=== PATIENT | female | born 1975 | race Caucasian/White ===

== ENCOUNTER 2017-03-08 08:51 | Emergency (ER) | payer MEDICAID ==
[~2017-03-08] VITALS: Ht 142.2 cm; Wt 97.5 kg
[2017-03-08 08:55] VITALS: Ht 142.2 cm; Wt 97.5 kg
[2017-03-08] MEDS ORDERED: morphine 4 MG/ML VIAL IV STA (09:32)
[2017-03-08] MEDS ORDERED: ONDANSETRON 4 MG INJ IV STA (09:32)
[2017-03-08 10:19] LABS: ADD SCAN DIFF NO
--- NOTE | 2017-03-08 10:22 | RADRPT ---
PROCEDURE: US Abdomen (right upper quadrant). CLINICAL INDICATION: Abdominal pain TECHNIQUE: Multiple real-time longitudinal and transverse images of the right upper quadrant of th e abdomen were acquired utilizing a curved array transducer. Images were reviewed on a high-resoluti on PACS workstation. COMPARISON: None FINDINGS: The visualized portions of the pancreas are unremarkable. The pancreatic tail and distal body are n ot visualized. The inferior vena cava is visualized in the hepatic portion and is grossly unremarkable. The visualized aorta is unremarkable, with measurements within normal limits. The right lobe of the liver measures 16.5 cm. The liver echogenicity and contour are within normal l imits. No definite liver masses are visualized. The main portal vein is patent and in the appropri ate direction. There are several small visualized within the gallbladder demonstrate posterior shadowing. The gall bladder is slightly contracted. The gallbladder wall thickness is about 3.7 mm, mildly prominent alt zaynab the gallbladder is slightly contracted. There is no pericholecystic fluid. The common bile duct measures 6.7 mm in diameter, at the upper limit of normal. There is no discre te gallstone visualized within the common bile duct. There is no intrahepatic biliary ductal dilata tion. The right kidney measures 11.2 cm in length. The parenchymal echogenicity and thickness appear withi n normal range. No focal lesions are visualized. There is no hydronephrosis. There is no ascites visualized in the right abdomen. RPTAT: EE IMPRESSION: 1. Cholelithiasis. 2. Borderline prominent common bile duct measuring about 6.7 mm. .Eden Burden MD, Date Time Electronically viewed and signed by .Eden Burden MD, MD on 03/08/2017 10:27 .T/
[2017-03-08 10:28] LABS: BASOPHILS % 0.2 % (0.0-2.0); EOSINOPHILS % 0.2 % (0.0-7.0); HEMATOCRIT 38.1 % (37.0-47.0); HEMOGLOBIN 12.8 g/dl (12.0-16.0); LYMPHOCYTES # 1.6 10^3/ul (0.8-2.9); LYMPHOCYTES % 12.8 % (15.0-51.0); MEAN CORPUSCULAR HEMOGLOBIN 29.1 pg (29.0-33.0); MEAN CORPUSCULAR HGB CONC 33.6 g/dl (32.0-37.0); MEAN CORPUSCULAR VOLUME 86.6 fl (82.0-101.0); MEAN PLATELET VOLUME 11.7 fl (7.4-10.4); MONOCYTE # 0.7 10^3/ul (0.3-0.9); MONOCYTES % 5.7 % (0.0-11.0); NEUTROPHILS % 80.8 % (39.0-77.0); PLATELET COUNT 239 10^3/UL (140-415); RED CELL DISTRIBUTION WIDTH 12.9 % (11.5-14.5); WHITE BLOOD COUNT 12.4 10^3/ul (4.8-10.8)
[2017-03-08 10:41] LABS: ALBUMIN/GLOBULIN RATIO 1.56; BILIRUBIN,INDIRECT 0.5 mg/dl (0-1.1); BILIRUBIN,TOTAL 0.5 mg/dl (0.2-1.3); CALCIUM 9.4 mg/dl (8.4-10.2); CREATININE 0.64 mg/dl (0.44-1.00); TOTAL PROTEIN 8.2 g/dl (6.1-8.1)
[2017-03-08] MEDS ORDERED: HYDROmorphONE 1 MG/ML SYG IV STA (11:01)
[2017-03-08] MEDS ORDERED: KETOROLAC 30 MG INJ IV STA (11:01)
[2017-03-08 11:35] LABS: ADD UMIC YES; UR ASCORBIC ACID NEGATIVE (NEGATIVE); UR BILIRUBIN (Dip) NEGATIVE (NEGATIVE); UR BLOOD (Dip) 3+ mg/dL (NEGATIVE); UR CLARITY CLOUDY (CLEAR); UR COLOR AMBER (YELLOW); UR GLUCOSE (Dip) 1+ mg/dL (NEGATIVE); UR KETONES (Dip) TRACE mg/dL (NEGATIVE); UR LEUKOCYTE ESTERASE (Dip) NEGATIVE Leu/ul (NEGATIVE); UR MUCUS FEW /HPF (NONE SEEN); UR NITRITE (Dip) NEGATIVE (NEGATIVE); UR RBC > 182 /HPF (0-5); UR SPECIFIC GRAVITY (Dip) 1.029 (1.003-1.030); UR SQUAMOUS EPITHELIAL CELL MODERATE /HPF (FEW); UR TOTAL PROTEIN (Dip) 2+ mg/dl (NEGATIVE); UR UROBILINOGEN (Dip) NEGATIVE (NEGATIVE)
[2017-03-08] MEDS ORDERED: CEFTRIAXONE 1 GM/50 ML (PMX) 50 ML IVPB ONE (12:00)
[2017-03-08] MEDS ORDERED: CIPR500T4 PO (12:32)
[2017-03-08] MEDS ORDERED: HYDR-906 PO (12:32)
[2017-03-08] MEDS ORDERED: ONDA8TAB14 PO (12:32)
--- NOTE | 2017-03-08 12:39 | ERD ---
ER Documentation Chief Complaint Date/Time DATE: 03/08/17 TIME: 12:36 Chief Complaint ABDOMINAL AND BACK PAIN HPI This 41-year-old female complains of upper abdominal pain for the last 2 days. She has nausea but no vomiting. She denies fevers, urinary complaints. She has a history of gallstones and has a history of ERCP with stone removal. She does not recall being advised to see a general surgeon for definitive treatment of gallstones. ROS All systems reviewed and are negative except as per history of present illness. Medications Home Meds Active Scripts Ciprofloxacin Hcl* (Ciprofloxacin Hcl*) 500 Mg Tablet, 500 MG PO BID for 5 Days , TAB Prov:KATIE DUPREE MD 03/08/17 Ondansetron (Ondansetron Odt) 8 Mg Tab.rapdis, 8 MG PO Q6H Y for NAUSEA AND/OR VOMITING, #10 TAB Prov:KATIE DUPREE MD 03/08/17 Hydrocodone/Acetaminophen ([place] 5-325 Tablet) 1 Each Tablet, 1 TAB PO Q6H Y for PAIN, #15 TAB Prov:KATIE DUPREE MD 03/08/17 Allergies Allergies: Coded Allergies: No Known Allergies (Verified Allergy, 05/05/12) Physical Exam Vitals Vital Signs Date Time Temp Pulse Resp B/P Pulse Ox O2 Delivery O2 Flow Rate FiO2 03/08/17 08:55 98.0 62 18 166/70 99 Physical Exam Const: [] Alert, uncomfortable, no apparent distress. Head: Atraumatic Eyes: Normal Conjunctiva ENT: Normal External Ears, Nose and Mouth. Neck: Full range of motion..~ No meningismus. Resp: Clear to auscultation bilaterally Cardio: Regular rate and rhythm, no murmurs Abd: Soft, tender in the right upper quadrant. No rebound and no tenderness at McBurney's point. No CVA tenderness. non distended. Normal bowel sounds Skin: No petechiae or rashes Back: No midline or flank tenderness Ext: No cyanosis, or edema Neur: Awake and alert Psych: Normal Mood and Affect Result Diagram: 03/08/17 0940 03/08/17 0940 Results 24 hrs Laboratory Tests Test 03/08/17 09:40 White Blood Count 12.410^3/ul Red Blood Count 4.4010^6/ul Hemoglobin 12.8g/dl Hematocrit 38.1% Mean Corpuscular Volume 86.6fl Mean Corpuscular Hemoglobin 29.1pg Mean Corpuscular Hemoglobin Concent 33.6g/dl Red Cell Distribution Width 12.9% Platelet Count 35046^3/UL Mean Platelet Volume 11.7fl Neutrophils % 80.8% Lymphocytes % 12.8% Monocytes % 5.7% Eosinophils % 0.2% Basophils % 0.2% Nucleated Red Blood Cells % 0.0/100WBC Neutrophils # 10.010^3/ul Lymphocytes # 1.610^3/ul Monocytes # 0.710^3/ul Eosinophils # 0.010^3/ul Basophils # 0.010^3/ul Nucleated Red Blood Cells # 0.010^3/ul Urine Color VANI Urine Clarity CLOUDY Urine pH 6.0 Urine Specific [place] 1.029 Urine Ketones TRACEmg/dL Urine Nitrite NEGATIVEmg/dL Urine Bilirubin NEGATIVEmg/dL Urine Urobilinogen NEGATIVEmg/dL Urine Leukocyte Esterase NEGATIVELeu/ul Urine Microscopic RBC > 182/HPF Urine Microscopic WBC 24/HPF Urine Squamous Epithelial Cells MODERATE/HPF Urine Mucus FEW/HPF Urine Hemoglobin 3+mg/dL Urine Glucose 1+mg/dL Urine Total Protein 2+mg/dl Sodium Level 141mmol/L Potassium Level 4.0mmol/L Chloride Level 100mmol/L Carbon Dioxide Level 28mmol/L Anion Gap 17 Blood Urea Nitrogen 10mg/dl Creatinine 0.64mg/dl Glucose Level 124mg/dl Calcium Level 9.4mg/dl Total Bilirubin 0.5mg/dl Direct Bilirubin 0.00mg/dl Indirect Bilirubin 0.5mg/dl Aspartate Amino Transf (AST/SGOT) 22IU/L Alanine Aminotransferase (ALT/SGPT) 24IU/L Alkaline Phosphatase 108IU/L Total Protein 8.2g/dl Albumin 5.0g/dl Globulin 3.20g/dl Albumin/Globulin Ratio 1.56 Lipase 23U/L Current Medications Medications (Trade) Dose Ordered Sig/Patria Route PRN Reason Start Time Stop Time Status Last Admin Dose Admin Morphine Sulfate (morphine) 4 mg ONCE STAT IV 03/08/17 09:32 03/08/17 09:34 DC 03/08/17 09:45 Ondansetron HCl (Zofran Inj) 4 mg ONCE STAT IV 03/08/17 09:32 03/08/17 09:34 DC 03/08/17 09:45 Ketorolac Tromethamine (Toradol) 30 mg ONCE STAT IV 03/08/17 11:01 03/08/17 11:02 DC 03/08/17 12:16 Hydromorphone HCl 1 mg 1 mg ONCE STAT IV 03/08/17 11:01 03/08/17 11:02 DC 03/08/17 12:17 Ceftriaxone Sodium (Rocephin) 50 ml @ 100 mls/hr ONCE ONCE IVPB 03/08/17 12:00 03/08/17 12:29 DC 03/08/17 12:16 Procedures/MDM CBC shows white blood count of 12.4. CMP and lipase showed no acute abnormalities. Right upper quadrant ultrasound shows gallstones without evidence of cholecystitis. There is some common bile duct dilatation which is borderline but no laboratory evidence of choledocholithiasis. Patient was given Zofran 4 mg IV and morphine 4 mg IV. Patient had pain despite morphine. Patient was given Toradol 30 mg IV and Dilaudid 1 mg IV. Urine shows positive white blood cells leukocytes and hemoglobin. HCG is negative. Patient was given Rocephin 1 g IV for signs of urinary tract infection although I doubt pyelonephritis given clinical exam. She will be treated with Cipro, [place] and Zofran instructions to avoid fatty foods. Patient was referred to general surgery for further evaluation treatment. She was advised to return for fevers, vomiting, intractable pain, new worsening symptoms otherwise with primary doctor in general surgery as indicated. There is no current evidence of cholecystitis, laboratory evidence of choledocholithiasis, sepsis, appendicitis, aortic disease, additional causes of abdominal pain. Departure Diagnosis: Primary Impression: UTI (urinary tract infection) Urinary tract infection type: acute cystitis Hematuria presence: without hematuria Qualified Code: N30.00 - Acute cystitis without hematuria Additional Impressions: Abdominal pain Abdominal location: right upper quadrant Qualified Code: R10.11 - Right upper quadrant abdominal pain Biliary colic Condition: Stable Patient Instructions: Understanding Urinary Tract Infections (UTIs), Gallstones Referrals: FELIPA RAMOS MD, THOMAS MD Additional Instructions: Urine shows infection and we will treat for this although pain likely from gallstones. See general surgery for further evaluation. May need authorization from primary doctor. Recheck for fevers, worsening pain, vomiting , new worsening symptoms. Avoid fatty foods per KATIE DUPREE MD Mar 08, 2017 12:39
[2017-03-08 12:52] VITALS: BP 130/60; PULSE 78; RESP 18
== END 2017-03-08 12:53 | disposition home or self-care (01) ==
LOC: FTE 08:51
DX: N30.00 Acute cystitis without hematuria (principal); R10.11 Right upper quadrant pain; K80.50 Calculus of bile duct without cholangitis or cholecystitis without obstruction; R11.0 Nausea
CPT/HCPCS: 36415; 76705; 80053; 81001; 83690; 85025; 96374; 96375; J0696; J1170; J1885; J2270; J2405; Z7502

== ENCOUNTER 2017-03-12 21:22 | Emergency (ER) | payer MEDICAID ==
[~2017-03-12] VITALS: Ht 149.9 cm; Wt 97.0 kg
[~2017-03-12 21:22] MED LIST: CIPR500T4 PO; HYDR-906 PO; ONDA8TAB14 PO
[2017-03-12 21:57] VITALS: Ht 149.9 cm; Wt 97.0 kg
[2017-03-12] MEDS ORDERED: ONDANSETRON 4 MG INJ IV STA (22:36)
[2017-03-12] MEDS ORDERED: morphine 4 MG/ML VIAL IV STA (22:36)
--- NOTE | 2017-03-12 22:36 | ERD ---
ER Documentation Chief Complaint Date/Time DATE: 03/12/17 TIME: 22:33 Chief Complaint right flank pain x 4 days HPI right UQ pain, pain 10/10, pt seen 4 days ago Dx with cholycysitis PROCEDURE: US Abdomen (right upper quadrant). CLINICAL INDICATION: Abdominal pain TECHNIQUE: Multiple real-time longitudinal and transverse images of the right upper quadrant of the abdomen were acquired utilizing a curved array transducer. Images were reviewed on a high-resolution PACS workstation. COMPARISON: None FINDINGS: The visualized portions of the pancreas are unremarkable. The pancreatic tail and distal body are not visualized. The inferior vena cava is visualized in the hepatic portion and is grossly unremarkable. The visualized aorta is unremarkable, with measurements within normal limits. The right lobe of the liver measures 16.5 cm. The liver echogenicity and contour are within normal limits. No definite liver masses are visualized. The main portal vein is patent and in the appropriate direction. There are several small visualized within the gallbladder demonstrate posterior shadowing. The gallbladder is slightly contracted. The gallbladder wall thickness is about 3.7 mm, mildly prominent although the gallbladder is slightly contracted. There is no pericholecystic fluid. The common bile duct measures 6.7 mm in diameter, at the upper limit of normal. There is no discrete gallstone visualized within the common bile duct. There is no intrahepatic biliary ductal dilatation. The right kidney measures 11.2 cm in length. The parenchymal echogenicity and thickness appear within normal range. No focal lesions are visualized. There is no hydronephrosis. There is no ascites visualized in the right abdomen. RPTAT: EE IMPRESSION: 1. Cholelithiasis. 2. Borderline prominent common bile duct measuring about 6.7 mm. .Edne Burden MD, Date Time Electronically viewed and signed by .Eden Burden MD, on 03/08/2017 10: 27 .T/ CC: KATIE DUPREE MD ROS All systems reviewed and are negative except as per history of present illness. Medications Home Meds Active Scripts Hydrocodone/Acetaminophen ([place] 5-325 Tablet) 1 Each Tablet, 1 TAB PO Q6H Y for PAIN, #20 TAB Prov:LUCIO,HAILY 03/13/17 Ciprofloxacin Hcl* (Ciprofloxacin Hcl*) 500 Mg Tablet, 500 MG PO BID for 7 Days , TAB Prov:LUCIO,HAILY 03/13/17 Ciprofloxacin Hcl* (Ciprofloxacin Hcl*) 500 Mg Tablet, 500 MG PO BID for 5 Days , TAB Prov:KATIE DUPREE MD 03/08/17 Ondansetron (Ondansetron Odt) 8 Mg Tab.rapdis, 8 MG PO Q6H Y for NAUSEA AND/OR VOMITING, #10 TAB Prov:KATIE DUPREE MD 03/08/17 Hydrocodone/Acetaminophen ([place] 5-325 Tablet) 1 Each Tablet, 1 TAB PO Q6H Y for PAIN, #15 TAB Prov:KATIE DUPREE MD 03/08/17 Allergies Allergies: Coded Allergies: No Known Allergies (Verified Allergy, Unknown, 03/12/17) PMhx/Soc Hx Alcohol Use: No Hx Substance Use: No Hx Tobacco Use: No Physical Exam Vitals Vital Signs Date Time Temp Pulse Resp B/P Pulse Ox O2 Delivery O2 Flow Rate FiO2 03/13/17 01:32 98.2 71 20 129/77 Room Air 03/12/17 21:57 101.3 89 20 137/78 89 Physical Exam Const: Well-nourished, well-hydrated, well-appearing in no acute distress. Head: Atraumatic Eyes: Normal Conjunctiva, PERRLA, EOM ENT: Normal External Ears, Nose and Mouth mucous membranes moist. Neck: Resp: Clear to auscultation bilaterally no murmurs no rales wheezes or rhonchi Cardio: Regular rate and rhythm, S1-S2, no S3-S4 Abd: Right upper quadrant tenderness, positive Rice sign. No McBurney's point tenderness, no CVA tenderness Skin: Back: No midline or flank tenderness Ext: Neur: Awake and alert Psych: Normal Mood and Affect Result Diagram: 03/12/17230203/12/172302 Results 24 hrs Laboratory Tests Test 03/12/17 23:03 White Blood Count 10.410^3/ul Red Blood Count 4.1610^6/ul Hemoglobin 12.4g/dl Hematocrit 35.7% Mean Corpuscular Volume 85.8fl Mean Corpuscular Hemoglobin 29.8pg Mean Corpuscular Hemoglobin Concent 34.7g/dl Red Cell Distribution Width 12.5% Platelet Count 65769^3/UL Mean Platelet Volume 11.0fl Neutrophils % 72.9% Lymphocytes % 19.1% Monocytes % 7.1% Eosinophils % 0.5% Basophils % 0.1% Neutrophils # 7.610^3/ul Lymphocytes # 2.010^3/ul Monocytes # 0.710^3/ul Eosinophils # 0.110^3/ul Basophils # 0.010^3/ul Nucleated Red Blood Cells # 0.010^3/ul Urine Color YELLOW Urine Clarity CLEAR Urine pH 7.0 Urine Specific [place] 1.008 Urine Ketones TRACEmg/dL Urine Nitrite NEGATIVEmg/dL Urine Bilirubin NEGATIVEmg/dL Urine Urobilinogen NEGATIVEmg/dL Urine Leukocyte Esterase NEGATIVELeu/ul Urine Microscopic RBC 2/HPF Urine Microscopic WBC 1/HPF Urine Hemoglobin 2+mg/dL Urine Glucose NEGATIVEmg/dL Urine Total Protein NEGATIVEmg/dl Sodium Level 142mmol/L Potassium Level 3.7mmol/L Chloride Level 96mmol/L Carbon Dioxide Level 30mmol/L Anion Gap 20 Blood Urea Nitrogen 6mg/dl Creatinine 0.62mg/dl Glucose Level 97mg/dl Calcium Level 10.1mg/dl Total Bilirubin 0.5mg/dl Direct Bilirubin 0.00mg/dl Indirect Bilirubin 0.5mg/dl Aspartate Amino Transf (AST/SGOT) 37IU/L Alanine Aminotransferase (ALT/SGPT) 47IU/L Alkaline Phosphatase 153IU/L Total Protein 8.8g/dl Albumin 4.4g/dl Globulin 4.40g/dl Albumin/Globulin Ratio 1.00 Lipase 24U/L Current Medications Medications (Trade) Dose Ordered Sig/Patria Route PRN Reason Start Time Stop Time Status Last Admin Dose Admin Sodium Chloride (NS) 1,000 ml @ 1,000 mls/hr Q1H ONCE IV 03/12/17 23:00 03/12/17 23:59 DC 03/12/17 23:07 Morphine Sulfate (morphine) 4 mg ONCE STAT IV 03/12/17 22:36 03/12/17 22:41 DC 03/12/17 23:06 Ondansetron HCl (Zofran Inj) 4 mg ONCE STAT IV 03/12/17 22:36 03/12/17 22:41 DC 03/12/17 23:06 Interpretation text CBC shows no evidence of hemorrhage or infection Chemistry shows no evidence of significant electrolyte abnormalities or renal insufficiency Lipase shows no evidence of acute pancreatitis Procedures/MDM This 41-year-old female presents to emergency department for right upper quadrant pain. History of cholelithiasis. Patient was seen 4 days ago sent home with [place], Zosyn, and Prilosec. Patient reports that she has taken all the pain medication and continues to have pain, has not been able to make appointment with primary care physician. Patient denies any nausea vomiting or diarrhea. Imaging was not redone today. Laboratory testing unremarkable. Urinalysis positive for microscopic hematuria and WBCs negative for nitrates, leukocytes,. No suspicion for pulmonary embolism or pneumonia. Appendicitis or biliary colic. Patient will be treated with ciprofloxacin 500 mg 1 tab p.o. twice daily 7 days, [place] 5/325 1 tab p.o. every 6 hours as needed pain count of 20 will be given. 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 Return to emergency department for worsening of symptoms. Continue all previous medication as prescribed. I feel the patient is stable for discharge at this time. I have discussed results, examination findings, the treatment plan with the patient and family present prior to discharge. Indications for emergent reevaluation, side effects of medication were also discussed. All questions were answered. Patient verbalizes understanding and agrees with plan of care. Departure Diagnosis: Primary Impression: Cholelithiasis Cholelithiasis location: gallbladder Cholecystitis presence: without cholecystitis Biliary obstruction: without biliary obstruction Qualified Code : K80.20 - Calculus of gallbladder without cholecystitis without obstruction Condition: Good Patient Instructions: Cancer of the Gallbladder Referrals: [facility] [place] ([place]) Comments Thank you for for coming to [facility] for your care today. Please ask your nurse or provider if you have questions about your care today and do not leave until all your questions have been answered. Please use any medications given as directed and follow-up with your doctor (or the doctor you were referred to) in the next 2-3 days. If you do not have a primary care doctor you may follow up at the [facility] [place] (listed below). You may also use motrin and tylenol as needed for fever and/or pain unless instructed otherwise by your provider or nurse. Indications for more urgent follow-up have been discussed, but you may return to the Emergency Department at ANY time for any worrisome or worsening symptoms. If you have abdominal pain, please know that no test or exam you received is perfect and you should follow up within 8 hours for continued pain. If you had any imaging studies today, such as an X-Ray or CT Scan, these studies will be reviewed later by a radiologist. You will be called if there are important findings that were not identified today, so make sure the contact information you provided at registration is correct. If you received any narcotic pain control medicine today, such as Vicodin, Morphine or Dilaudid, your coordination and judgment may be affected for a number of hours. Please do not drive or operate heavy machinery, and you may want someone to assist you at home. If you were given a prescription for narcotic medication, be aware that it is very addictive- use sparingly and only if necessary. HAILY VALDES Mar 12, 2017 22:36
[2017-03-12] MEDS ORDERED: SOD CHLORIDE 0.9% 1,000 ML IV ONE (23:00)
[2017-03-12 23:19] LABS: ADD SCAN DIFF NO
[2017-03-12 23:24] LABS: BASOPHILS % 0.1 % (0.0-2.0); EOSINOPHILS # 0.1 10^3/ul (0.0-0.5); EOSINOPHILS % 0.5 % (0.0-7.0); HEMATOCRIT 35.7 % (37.0-47.0); HEMOGLOBIN 12.4 g/dl (12.0-16.0); LYMPHOCYTES % 19.1 % (15.0-51.0); MEAN CORPUSCULAR HEMOGLOBIN 29.8 pg (29.0-33.0); MEAN CORPUSCULAR HGB CONC 34.7 g/dl (32.0-37.0); MEAN CORPUSCULAR VOLUME 85.8 fl (82.0-101.0); MONOCYTE # 0.7 10^3/ul (0.3-0.9); MONOCYTES % 7.1 % (0.0-11.0); NEUTROPHIL # 7.6 10^3/ul (1.6-7.5); NEUTROPHILS % 72.9 % (39.0-77.0); PLATELET COUNT 291 10^3/UL (140-415); RED BLOOD COUNT 4.16 10^6/ul (4.20-5.40); RED CELL DISTRIBUTION WIDTH 12.5 % (11.5-14.5); WHITE BLOOD COUNT 10.4 10^3/ul (4.8-10.8)
[2017-03-12 23:32] LABS: ADD UMIC YES; UR ASCORBIC ACID NEGATIVE (NEGATIVE); UR BILIRUBIN (Dip) NEGATIVE (NEGATIVE); UR BLOOD (Dip) 2+ mg/dL (NEGATIVE); UR CLARITY CLEAR (CLEAR); UR COLOR YELLOW (YELLOW); UR GLUCOSE (Dip) NEGATIVE (NEGATIVE); UR KETONES (Dip) TRACE mg/dL (NEGATIVE); UR LEUKOCYTE ESTERASE (Dip) NEGATIVE Leu/ul (NEGATIVE); UR NITRITE (Dip) NEGATIVE (NEGATIVE); UR RBC 2 /HPF (0-5); UR SPECIFIC GRAVITY (Dip) 1.008 (1.003-1.030); UR TOTAL PROTEIN (Dip) NEGATIVE (NEGATIVE); UR UROBILINOGEN (Dip) NEGATIVE (NEGATIVE)
[2017-03-12 23:41] LABS: ALBUMIN 4.4 g/dl (3.3-4.9); BILIRUBIN,INDIRECT 0.5 mg/dl (0-1.1); BILIRUBIN,TOTAL 0.5 mg/dl (0.2-1.3); CALCIUM 10.1 mg/dl (8.4-10.2); CREATININE 0.62 mg/dl (0.44-1.00); POTASSIUM 3.7 mmol/L (3.5-5.1); TOTAL PROTEIN 8.8 g/dl (6.1-8.1)
[2017-03-13] MEDS ORDERED: HYDR-906 PO (00:46)
[2017-03-13] MEDS ORDERED: CIPR500T4 PO (00:46)
[2017-03-13 01:32] VITALS: BP 129/77; PULSE 71; RESP 20; TEMP 98.2
== END 2017-03-13 01:30 | disposition home or self-care (01) ==
LOC: FTE 21:22
DX: K80.20 Calculus of gallbladder without cholecystitis without obstruction (principal)
CPT/HCPCS: 80053; 81001; 83690; 85025; 96374; 96375; J2270; J2405; J7030; Z7502